=== PATIENT | female | born 1985 | race Caucasian/White ===

== ENCOUNTER 2016-11-14 02:56 | Observation (INO) | payer MEDICAID ==
[~2016-11-14] VITALS: Ht 165.1 cm; Wt 74.8 kg
[2016-11-14] MEDS ORDERED: PREN-88 PO (03:51)
[2016-11-14] MEDS ORDERED: DEXT 5%/LACTATED RINGERS 1,000 ML IV SCH (03:52)
[2016-11-14] MEDS ORDERED: CITRIC ACID/SODIUM CITRATE SOLN 30ML UDC PO NR (04:15)
[2016-11-14] MEDS ORDERED: ACETAMINOPHEN 500MG TABLET PO NR (04:30)
[2016-11-14 04:51] LABS: CLARITY URINE CLEAR (CLEAR); COLOR URINE DARK YELLOW (YELLOW); GLUCOSE URINE NEGATIVE (NEGATIVE); KETONES URINE NEGATIVE (NEGATIVE); LEUKOCYTE ESTERASE URINE TRACE (NEGATIVE); NITRITE URINE NEGATIVE (NEGATIVE); OCCULT BLOOD URINE NEGATIVE (NEGATIVE); PH URINE 6.5 (4.5-8.0); PROTEIN URINE NEGATIVE (NEGATIVE); SPECIFIC GRAVITY URINE 1.022 (1.005-1.030)
== END 2016-11-14 06:58 | disposition home or self-care (01) ==
LOC: L&D 02:56
PROVIDERS: ADMIT Obstetrics & Gynecology; ATTEND Obstetrics & Gynecology
DX: O26.892 Other specified pregnancy related conditions, second trimester (principal); R10.11 Right upper quadrant pain; Z3A.20 20 weeks gestation of pregnancy
CPT/HCPCS: 81001; 99281; G0378; 96360; 96361